=== PATIENT | male | born 1950 | race Caucasian/White ===

== ENCOUNTER 2019-04-25 16:46 | Inpatient (IN) ==
[2019-04-25] MEDS ORDERED: NS 1,000 ML IV ONE ×2 (17:35→18:48)
[2019-04-25] MEDS ORDERED: ROCEPHIN 1 GM in NS 50 ML IV ONE (17:35)
[2019-04-25 17:51] LABS: URINE SOURCE CLEAN CATCH
--- NOTE | 2019-04-25 17:55 | Diag Imaging Result Doc PS360 ---
EXAM: CHEST-1 VIEW HISTORY: ams, lymphoma TECHNIQUE: Chest single view COMPARISON: 04/29/2018 FINDINGS: Poor inspiratory effort. No change in the right jugular catheter. Heart is borderline mildly prominent. Sternal wires are present. No pulmonary edema. Increased markings in the left lung base. The right lung is clear. IMPRESSION: Possible small infiltrate in the left base. Electronically signed by Krzysztof Benson 04/25/2019 5:53 PM
[2019-04-25 18:06] LABS: BILIRUBIN URINE NEGATIVE (NEGATIVE); BLOOD URINE LARGE (NEGATIVE); COLOR YELLOW; GLUCOSE URINE NEGATIVE (NEGATIVE); KETONE URINE NEGATIVE (NEGATIVE); LEUKOCYTES URINE LARGE (NEGATIVE); NITRITE URINE NEGATIVE (NEGATIVE); PROTEIN URINE 300 mg/dL (NEGATIVE); SP GRAVITY URINE 1.016; TURBIDITY URINE TURBID (CLEAR); UROBILINOGEN URINE NORMAL (NORMAL)
[2019-04-25 18:06] LABS: INR 0.97; PROTIME 13.6 Seconds (11.0-16.0)
[2019-04-25 18:07] LABS: PTT 51.2 Seconds (22.3-41.8)
[2019-04-25 18:22] LABS: BASO% 0.4 % (0.0-0.8); EOS% 0.7 % (0.0-10.0); HEMATOCRIT 23.9 % (42.0-52.0); HEMOGLOBIN 7.3 g/dL (14.0-18.0); LYMPH% 16.5 % (20.5-51.1); MCH 32.3 PG (27-31); MCHC 30.5 g/dL (33-37); MCV 105.8 FL (81-99); MONO% 18.7 % (1.7-9.3); MPV 9.7 FL (7.4-10.4); NEUT% 62.6 % (42.2-75.2); PLT 166 X1000 (130-400); RBC 2.26 XMIL (4.7-6.1); RDW 18.3 % (11.5-14.5); WBC 2.67 X1000 (4.8-10.8)
[2019-04-25 18:23] LABS: BASO# 0.01 X1000 (0.0-0.2); EOS# 0.02 X1000 (0.0-0.7); IMM GRAN# 0.03 X1000 (0.0-0.04); IMM GRAN% 1.1 % (0.0-0.5); LYMPH# 0.44 X1000 (1.2-3.4); NEUT# 1.67 X1000 (1.4-6.5)
[2019-04-25 18:23] LABS: UR EPITHELIAL CELLS <10 /HPF (<10); URINE BACTERIA 2+ /HPF; URINE RBC <10 /HPF (<10); URINE WBC TNTC /HPF (<10)
[2019-04-25 18:24] LABS: URINE CASTS NONE SEEN; URINE CRYSTALS NONE SEEN; URINE YEAST NONE SEEN
[2019-04-25 18:25] LABS: URINE SMALL ROUND CELLS TRANS PRESENT
[2019-04-25] MEDS ORDERED: VANCOMYCIN 1 GM/NS 1 GM/250 ML IVPB IV ONE (18:35)
[2019-04-25] MEDS ORDERED: ZOSYN 4.5 GM in NS 100 ML IV ONE (18:36)
--- NOTE | 2019-04-25 18:40 | Diag Imaging Result Doc PS360 ---
EXAM: CT HEAD W/O CONTRAST HISTORY: AMS, lymphoma TECHNIQUE: CT head without contrast COMPARISON: 04/29/2018 FINDINGS: No parenchymal hemorrhage. No epidural or subdural hematoma. No subarachnoid hemorrhage. There is atrophy with chronic microvascular ischemic changes. Old cerebellar infarcts. No mass identified on this noncontrasted exam. No hydrocephalus. No sinus opacification. IMPRESSION: 1.No hemorrhage 2.Old infarcts with chronic microvascular ischemic changes This exam was performed using automated exposure control, adjustment of mA or kV according to patient size, and/or use of iterative reconstruction technique. Electronically signed by Krzysztof Benson 04/25/2019 6:38 PM
[2019-04-25] MEDS ORDERED: NS 500 ML IV ONE (18:48)
--- NOTE | 2019-04-25 18:48 | PROVIDER DOCUMENTATION ---
This chart was entered by Karyna Ramos Scribe, acting as scribe for Edis Linda MD. HPI-General Adult - General Chief Complaint: SEPSIS ALERT - D Stated Complaint: WEAKNESS Time Seen by Provider: 04/25/19 17:12 Source: patient, RN/MD (RN) Allergies/Adverse Reactions: Patient Allergies Allergy/AdvReac Type Severity Reaction Status Date / Time No Known Allergies Allergy Verified 12/27/18 06:04 Home Medications: Home Medication List Medication Instructions Recorded Confirmed Last Taken Type Atorvastatin Calcium [Lipitor] 80 mg PO QHS #90 tablet 07/14/16 03/06/19 03/26/19 21:00 Rx Aspirin 81 mg PO QAM 09/08/16 03/06/19 03/27/19 05:00 History Carvedilol 3.125 mg PO DAILY 01/18/18 03/06/19 03/27/19 05:00 History Digoxin 125 mcg PO DAILY 01/18/18 03/06/19 03/27/19 05:00 History Prochlorperazine [Compazine] 10 mg PO TID PRN PRN 04/29/18 03/06/19 03/27/19 05:00 History Cholecalciferol (Vitamin D3) 1,000 unit PO DAILY 12/24/18 03/06/19 03/27/19 05:00 History [Vitamin D3] Ciprofloxacin 0.3% Ophth Soln 1 - 2 drop Q2HR 12/24/18 03/06/19 Unknown History [Ciloxan Ophth Soln] Fluticasone Propionate [Flonase 1 spray NS DAILY 12/24/18 03/06/19 03/27/19 05:00 History Allergy Relief] Iron 65 mg PO DAILY 12/24/18 03/06/19 03/27/19 05:00 History Lenalidomide [Revlimid] 25 mg PO DIRECTED 12/24/18 03/06/19 03/27/19 05:00 History Meclizine HCl [Antivert] 25 mg PO TID 12/24/18 03/06/19 03/27/19 05:00 History Multivitamin/Iron/Folic Acid 1 each PO DAILY 12/24/18 03/06/19 03/27/19 05:00 History [Multivitamin with Iron Tablet] Nitroglycerin 0.4 mg SL PRN PRN 12/24/18 03/06/19 Unknown History Ondansetron HCl [Zofran] 0.5 - 1 tab PO PRN PRN 12/24/18 03/06/19 03/27/19 05:00 History Sacubitril/Valsartan [Entresto 24 1 each PO HS 12/24/18 03/06/19 12/26/18 08:00 History mg-26 mg Tablet] Vitamin B Complex 1 each PO DAILY 12/24/18 03/06/19 03/26/19 21:00 History Phenazopyridine HCl [Pyridium] 100 mg PO Q8H PRN PRN #12 tab 03/27/19 Unknown Rx Sulfamethoxazole/Trimethoprim 1 ea PO BID #6 tab 03/27/19 Unknown Rx [Bactrim Ds Tablet] - History of Present Illness -Gen Adult Nature of Presenting Problems: Patient is a 69 year old male who presents to the ED via EMS with weakness and dysuria. Patient is a poor historian. RN states EMS stated patient was found altered by family prior to arrival. RN states patient had radiation treatment yesterday. Patient denies nausea, vomiting, diarrhea and fever. Location of Pain/Injury: reports: none Pain Radiation: reports: no radiation Quality of Pain: reports: none Severity: reports: mild Onset/Duration: reports: unsure Timing: reports: still present Context/Activities at Onset: reports: light activity Associated Symptoms: reports: genitourinary problems (dysuria), weakness Similar Symptoms Previously?: Yes Recently seen or treated by another doctor?: No Review of Systems - Adult - REVIEW OF SYSTEMS - ADULT ROS:: limited per condition Constitutional: reports: no symptoms reported. denies: chills, fever, fatique Eyes: reports: no symptoms reported Ears, Nose, Mouth & Throat: reports: no symptoms reported Cardiovascular: reports: no symptoms reported Respiratory: reports: no symptoms reported Gastrointestinal: reports: no symptoms reported. denies: abdominal pain, diarrhea, nausea, vomiting Genitourinary: reports: see HPI, dysuria. denies: flank pain, hematuria Musculoskeletal: reports: see HPI, muscle weakness. denies: back pain, neck pain Integumentary: reports: no symptoms reported Neurological: reports: no symptoms reported Psychiatric: reports: no symptoms reported Endocrine: reports: no symptoms reported Hematologic/Lymphatic: reports: no symptoms reported Allergic/Immunologic: reports: no symptoms reported All Other Systems: Reviewed and Negative Past History - Adult - PAST MEDICAL HISTORY-ADULT Review of Records: reports: Nursing Assessment Review, Medications Reviewed, Social history reviewed & non-contributory. Major Childhood Illnesses: reports: denies history Cardiovascular: reports: HTN Respiratory: reports: denies history Gastrointestinal: reports: denies history Obstetrical/Gynecological: reports: denies history Genitourinary: reports: kidney stones Musculoskeletal: reports: denies history Neurological: reports: CVA Endocrine/Immune: reports: cancer (Lymphoma) Other Conditions: reports: denies history - PRIOR SURGERIES/PROCEDURES Surgical/Procedure History: reports: reviewed, not pertinent - IMMUNIZATION STATUS Childhood Immunizations: See Nurse Assessment Flu Vaccine: See Nurse Assessment - FAMILY HISTORY Family History: reviewed, not pertinent - SOCIAL HISTORY Smoking: denies Substance Use: denies Physical Exam-General - PHYSICAL EXAM-ADULT Initial Vital Signs Reviewed: Yes - CONSTITUTIONAL General Appearance: alert, lethargic. negative: obtunded - HEAD, EARS, NOSE, MOUTH & THROAT HENMT: other (dry mucous membranes). negative: angioedema, hearing deficit - NECK Neck: non-tender, other (2 cm by 3 cm large firm mass with fixed base to left side neck above clavicle). negative: limited range of motion - RESPIRATORY Respiratory: chest non-tender, lungs clear, normal breath sounds. negative: crackles, rhonchi, stridor - CARDIOVASCULAR Cardiovascular: normal peripheral pulses, regular rate, rhythm, systolic murmur (3/6 murmur. heard best at left sternal border.). negative: tachycardia - GASTROINTESTINAL (ABDOMEN) Abdominal Exam: normal bowel sounds, non tender, soft. negative: guarding, rigid, rebound - MUSCULOSKELETAL Extremity: non-tender, other (4 + pitting edema to bilateral lower extremities.) . negative: deformity, erythema - SKIN Integumentary: normal color, normal turgor, warm/dry. negative: diaphoresis, e cchymosis, erythema, jaundice, rash - NEUROLOGIC Neurologic: other (slurred speech). negative: motor weakness - PSYCHIATRIC Psych/Mental Status: disheveled, other (lethargic). negative: paranoid, tearful Progress - PLAN OF CARE/RESULTS Progress/Plan/Lab Results: Vital Signs - 8 hr 04/25/19 17:00 Temperature 98.2 F Pulse Rate 85 Respiratory Rate 17 Blood Pressure 109/55 O2 Sat by Pulse Oximetry 97 Laboratory Results - last 24 hr 04/25/19 17:23 POC Glucose 108 H Result Diagrams: 04/25/19 17:40 - EKG 1 Time of EKG reading by physician:: 17:13 EKG Read and Signed by:: Edis Linda EKG Interpretation (*Must complete 3 of following elements*): Abnormal (possible lateral infarct, age undetermined) Rate: 95 Rhythm: normal sinus rhythm [place]: normal QRS: other (low voltage) [place] Interval: normal Comments: possible left atrial enlargement; septal infarct, age undetermined - CONSULTS/PCP/HOSPITALIST Notification #1 *Consult/PCP/Hospitalist*: Radha Time Discussed: 18:47 Consult Disposition: Will see in ED Departure - Departure Date of Disposition Decision: 04/25/19 Time of Disposition Decision: 18:47 DIAGNOSIS: Severe sepsis, Complicated UTI (urinary tract infection) Left lower lobe pneumonia Qualifiers: Pneumonia type: due to unspecified organism Qualified Code(s): J18.1 - Lobar pneumonia, unspecified organism Lymphoma Qualifiers: Lymphoma type: unspecified type Disposition: ADMITTED INPATIENT 09 Certified Medical Emergency: Emergent Condition: Critical Referrals and Follow-Ups: Jero Bennett MD [Primary Care Provider] - - Critical Care Note This patient required my direct & personal management of CC.: Yes Total Time (mins): 40 Critical Care Statement: This patient required my direct personal management to treat or rule out processes, the absence of which, could potentiallly result in sudden, clinically significant life or limb threatening deterioration. Attestation - Physician/ TITI Attestation Patient care was provided by Advanced Practice Provider:: No The physician spent face to face time with patient:: Yes Advanced Practice Provider documentation review:: Supervising physician onsite and consulted in the evaluation and care of this patient. The physician did have a face to face encounter with the patient. This chart was documented by the indicated scribe, (Karyna Ramos Scribe) and accurately reflects the services I performed and decisions made by , Edis Linda MD, as attested by the provider's signature.
[2019-04-25 19:01] LABS: ALB/GLOB RATIO 1.1; ALBUMIN 2.8 g/dL (3.5-5.0); CREATININE 2.4 mg/dL (0.7-1.2); MAGNESIUM 1.8 mg/dL (1.5-2.7); POTASSIUM 4.2 mmol/L (3.5-5.1); TOTAL BILIRUBIN 0.58 mg/dL (0.20-1.00); TOTAL PROTEIN 5.3 g/dL (6.3-8.3)
[2019-04-25 19:03] LABS: CALCIUM 14.3 mg/dL (8.8-10.2)
[2019-04-25 19:08] LABS: LARGE PLATELETS OCCASIONAL; LYMPHS 16 % (21-51); MONO 16 % (1-9); SEGS 68 % (42-75)
[2019-04-25 19:23] LABS: CK INDEX 1.1 (0.0-2.5); CK-MB 2.6 ng/mL (0.0-5.0)
[2019-04-25] MEDS ORDERED: ZOFRAN IV PRN (19:30)
[2019-04-25] MEDS ORDERED: D5 NS 1,000 ML IV ONE (19:33)
[2019-04-25 23:51] LABS: CREATININE 2.2 mg/dL (0.7-1.2); POTASSIUM 3.8 mmol/L (3.5-5.1)
[2019-04-25 23:54] LABS: CALCIUM 12.5 mg/dL (8.8-10.2)
[2019-04-26] MEDS ORDERED: NS 1,000 ML IV SCH (00:30)
[2019-04-26] MEDS ORDERED: MORPHINE IV PRN (00:34)
[2019-04-26] MEDS: LEVAQUIN 750 MG/D5W 750 MG/150 ML IVPB IV SCH (04:33)
--- NOTE | 2019-04-26 06:34 | Diag Imaging Result Doc PS360 ---
CT NECK W/O CONTRAST - 04/26/2019 INDICATION: Hx Lymphoma, Left Neck Nodules COMPARISON: 12/18/2017 FINDINGS: There is left supraclavicular lymphadenopathy that has decreased since prior. This is incompletely imaged on this neck exam as it extends into the chest. There are two large nodes measuring 4 x 3 and 3.8 x 2.1 cm here. No other adenopathy. Stable dense vascular calcification of the carotid bulbs left greater than right. Bones are intact. The sinuses are clear. IMPRESSION: Left supraclavicular lymphadenopathy, decreased since the prior exam. This exam was performed using automated exposure control, adjustment of mA or kV according to patient size, and/or use of iterative reconstruction technique Electronically signed by Geovani Madden 04/26/2019 6:32 AM
--- NOTE | 2019-04-26 06:43 | Diag Imaging Result Doc PS360 ---
CT THORAX/ABD/PELVIS W/O CON - 04/26/2019 INDICATION: Hx Lymphoma,LLQ Abd. Pain,Poss. LLL PNA COMPARISON: None FINDINGS: CHEST: There is left supraclavicular lymphadenopathy measuring 4 x 5.1 cm in AP and lateral dimensions. There are some borderline paratracheal lymph nodes. There is mild cardiomegaly. Anemia is present. There is a right chest port in good position. There is a rather large hiatal hernia. There are trace pleural effusions. There is some hazy infiltrate throughout the left lung which may suggest pneumonia. Bony structures are intact. Abdomen pelvis: There is marked retroperitoneal lymphadenopathy. There is also mesenteric adenopathy and marked left pelvic sidewall lymphadenopathy. There are bilateral nephroureteral stents in good position. There is mild to moderate bilateral hydronephrosis. There are indeterminate hyperdense nodules in the right perinephric space superiorly. There is significant body wall edema. The gallbladder is filled with dense material probably some intravenous contrast from some other administration elsewhere, since these were all noncontrast exams. There is severe urinary bladder wall thickening which may suggest cystitis. No bowel obstruction or free air. Bones are intact. IMPRESSION: 1. Significant adenopathy compatible with lymphoma. 2. Hazy infiltrate throughout the left lung suggesting pneumonia. Trace bilateral pleural effusions. 3. Severe body wall edema. 4. Urinary bladder wall thickening suggesting cystitis. 5. Mild to moderate bilateral hydronephrosis. Nephroureteral stents in good position. 6. Small indeterminate nodules at the right kidney. This exam was performed using automated exposure control, adjustment of mA or kV according to patient size, and/or use of iterative reconstruction technique Electronically signed by Geovani Madden 04/26/2019 6:40 AM
--- NOTE | 2019-04-26 06:58 | EKG Report ---
Test Performed on : 04/25/2019 5:13:34 PM Test Reason : ED. NO EKG ORDER FOR MUSE Blood Pressure : / mmHG Vent. Rate : 095 BPM Atrial Rate : 095 BPM P-R Int : 168 ms QRS Dur : 098 ms QT Int : 314 ms P-R-T Axes : 014 057 -23 degrees QTc Int : 394 ms Normal sinus rhythm. Possible Left atrial enlargement Low voltage QRS Septal infarct (cited on or before 07-JUL-2016) Possible Lateral infarct , age undetermined Abnormal ECG When compared with ECG of 29-APR-2018 09:20, QRS axis shifted left Unconfirmed Result
--- NOTE | 2019-04-26 07:05 | Diag Imaging Result Doc PS360 ---
EXAM: KNEE 3 VIEWS RIGHT 04/25/2019 HISTORY: Fall, Right Knee Pain TECHNIQUE: Three views COMMENT: There is extensive subcutaneous edema. The tibial tuberosity is somewhat elongated. The joint spaces appear to be well maintained. There is a small separate ossicle adjacent to the head of the fibula. There is extensive arteriosclerosis. The lateral view is technically suboptimal. No definite evidence of acute fracture or dislocation is present. IMPRESSION: No evidence of acute bony disease. Electronically signed by Joe Wen 04/26/2019 7:03 AM
--- NOTE | 2019-04-26 07:29 | Diag Imaging Result Doc PS360 ---
EXAM: XRAY PELVIS W/HIP 2-3VW RT 04/25/2019 HISTORY: FAll,Right Hip and RLE Pain TECHNIQUE: AP pelvis and right hip three views COMMENT: The hip joint spaces well-maintained. There is no evidence of acute fracture or dislocation. IMPRESSION: No acute bony abnormality. Electronically signed by Joe Wen 04/26/2019 7:26 AM
[2019-04-26] MEDS ORDERED: DUONEB (A & A) INH PRN (09:39)
[2019-04-26 11:21] LABS: EOS# 0.01 X1000 (0.0-0.7); EOS% 0.5 % (0.0-10.0); HEMATOCRIT 27.1 % (42.0-52.0); HEMOGLOBIN 8.4 g/dL (14.0-18.0); IMM GRAN# 0.02 X1000 (0.0-0.04); IMM GRAN% 0.9 % (0.0-0.5); LYMPH# 0.27 X1000 (1.2-3.4); LYMPH% 12.4 % (20.5-51.1); MCH 32.1 PG (27-31); MCV 103.4 FL (81-99); MONO# 0.19 X1000 (0.11-0.59); MONO% 8.8 % (1.7-9.3); MPV 10.1 FL (7.4-10.4); NEUT# 1.68 X1000 (1.4-6.5); NEUT% 77.4 % (42.2-75.2); PLT 154 X1000 (130-400); RBC 2.62 XMIL (4.7-6.1); RDW 18.7 % (11.5-14.5); WBC 2.17 X1000 (4.8-10.8)
[2019-04-26 11:35] LABS: IRON SATURATION 28 %; TIBC 285 ug/dL; TOTAL IRON 80 ug/dL (53-167); UNBOUND IRON 205 ug/dL (112-346)
[2019-04-26 11:41] LABS: ALBUMIN 2.6 g/dL (3.5-5.0); CALCIUM 12.1 mg/dL (8.8-10.2); CREATININE 2.2 mg/dL (0.7-1.2); MAGNESIUM 1.6 mg/dL (1.5-2.7); POTASSIUM 3.9 mmol/L (3.5-5.1); TOTAL BILIRUBIN 0.55 mg/dL (0.20-1.00); TOTAL PROTEIN 5.1 g/dL (6.3-8.3)
[2019-04-26] MEDS ORDERED: ZOMETA 4 MG in NS 100 ML IV ONE (12:24)
[2019-04-26 13:11] LABS: FERRITIN 102 ng/mL (30-400)
[2019-04-26] MEDS ORDERED: LASIX IV ONE (14:15)
--- NOTE | 2019-04-26 14:40 | HISTORY AND PHYSICAL ---
PRIMARY CARE PROVIDER: JOHN Pedro PATIENT'S ONCOLOGIST: Dr. Borges. CHIEF COMPLAINT: Weakness. HISTORY OF PRESENT ILLNESS: Mr. Ibrahim is a 69-year-old male with a past medical history of large B-cell lymphoma currently followed by Dr. Borges. He reports he is receiving daily oral chemotherapy. He did recently undergo a urological surgery with Dr. Brush on 03/27/2019 for which he had a cystoscopy with bilateral ureteral stent exchange with bilateral retrograde pyelograms. The patient is alert and oriented to person, place, time and situation though he does have some difficulty with speech secondary to a previous stroke so his sister did provide most of his history of present illness and past medical history. She states that for the past month now pretty much since the surgery on 03/27 that he has had progressively worsening weakness. She also reports that he has had a total of 4 falls since then. Initially, at the time of his initial fall which would been around 04/09 or 04/10, he did get evaluated by Dr. Borges. She did do x-rays of his knee and was found not to have any acute injuries though she states yesterday that the patient did fall from a sitting position onto the floor. This as well as his worsening weakness is what brought him to have him evaluated in the ER. The patient's sister denies him having any known changes to any of his medicines or any new medicines written. The patient denies any dizziness, chest pain, or shortness of breath though he does report that he has had a nonproductive cough that is of new onset. He is reporting some left lower quadrant pain and dysuria. He denies any nausea, vomiting or diarrhea. He denies any constipation, and states his last bowel movement was within the last day or so. The patient is reporting some right lower extremity pain in his hip and knee area. He does have some decreased mobility and range of motion, and decreased range of motion in this extremity as well. His sister states that since his most recent fall he has been unable to bear weight on his right lower extremity. He has not had any known fever, body aches, or chills either. Upon evaluation in the ER, patient was found to be anemic with a hemoglobin of 7.3 and hematocrit of 23.9. Also, he did have acute kidney injury with a creatinine of 2.4 and GFR of 27 as well as hypercalcemia with a calcium level of 14.3. Urinalysis did show large leukocytes, too numerous to count white blood cells, and 2+ bacteria. There was a possible pneumonia in the left lung base. Given these findings, the patient will be admitted in a patient for admission for further treatment and evaluation. PAST MEDICAL HISTORY: 1. Lymphoma followed by Dr. Borges. 2. Systolic heart failure. 3. Hyperlipidemia. 4. Coronary artery disease. 5. 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 PAST SURGICAL HISTORY: 1. Multiple biopsies related to his lymphoma. 2. Coronary artery bypass graft. 3. Cardiac surgery as a child to repair an unknown heart defect. 4. Right inguinal hernia repair. 5. A recent cystoscopy with bilateral ureteral stent exchange with bilateral retrograde pyelograms by Dr. Brush on 03/27/2019. SOCIAL HISTORY: There is no known alcohol or illicit drug use. The patient does live at home with his sister. FAMILY HISTORY: Positive for his mother having a history of unknown metastatic cancer. His father at a young age secondary to a gunshot wound. ALLERGIES: Patient has no known allergies. HOME MEDICATIONS: We are waiting for the patient's home medication list to be updated and verified. Once done so, we will address his home medications and continue appropriate medications. DIAGNOSTIC DATA/LABORATORY RESULTS: White blood cell count 2670. Hemoglobin 7.3, hematocrit 23.9, and the platelet count is 166,000. PT 13.6. INR 0.97. PTT is 51.2. Sodium 138, potassium 4.2, chloride 100, serum bicarb is 26, BUN 46, creatinine 2.4 with a GFR of 27. Glucose is 101. Calcium 14.3. Liver function tests are within normal limits except for AST was slightly elevated at 63. CK 234, CK index 1.1, CK-MB is 2.6 troponin is 0.036. Urinalysis obtained via clean catch, was positive for blood, large leukocytes, too numerous to count white blood cells, and 2+ bacteria. 1. CT of the head showed no acute hemorrhage. There were some old infarcts with chronic microvascular ischemic changes. 2. Chest showed a possible small infiltrate in the left lung base. 3. Pelvis with right hip views showed no acute bony abnormality. 4. Her right knee x-ray showed no evidence of bony disease. 5. CT thorax of abdomen and pelvis without contrast showed significant adenopathy compatible with lymphoma. There was a hazy infiltrate throughout the left lung suggesting pneumonia. There were also trace bilateral effusions. There was severe body wall edema. There was urinary bladder wall thickening suggesting cystitis. There is a mild to moderate bilateral hydronephrosis and nephro ureteral stents in good position. There were small intermittent nodules at the right kidney. 6. Neck CT without contrast showed a left supraclavicular lymphadenopathy decreased in size since prior exam. 7. EKG showed sinus rhythm and possible left atrial enlargement at a rate of 95 with a QTc of 394. PHYSICAL EXAMINATION: VITAL SIGNS: Temperature 98.4, heart rate 83, respirations 16, and blood pressure 123/53. Oxygen Saturation is 100% on room air. GENERAL: Mr. Ibrahim is an ill appearing 69-year-old male. He was resting on the ER stretcher. He is in no acute distress. He was awake and alert, unable to answer questions appropriately. HEENT: Head is atraumatic, normocephalic. Pupils are equal, round, reactive to light, and were 3 mm bilaterally and brisk. Oral mucosa is moist. Oropharynx is clear. NECK: Supple. Trachea midline. CARDIOVASCULAR: Patient has S1-S2 present. He also does have a murmur noted as well. He does have a regular rate and rhythm. PULMONARY: Patient has symmetrical chest expansion bilaterally. Lung sounds are clear to auscultation in all solis except for he does have some crackles in the left lung base noted. ABDOMEN: Soft. Nondistended though he did report some tenderness upon palpation in the left lower quadrant. There was no rebound tenderness noted. Bowel sounds are present in all 4 quadrants and were normoactive. EXTREMITIES: No cyanosis noted, though the patient does have. Edema noted in bilateral lower extremities. This is 1 to 2+ pitting edema noted approximately in the mid calf down bilaterally. Pulse, motor and sensory is intact in all extremities. Radial pulses and pedal pulses were 2+ bilaterally. INTEGUMENTARY: The patient's skin is slightly pale though is warm and dry. NEUROLOGICAL: Patient is alert and oriented to person, place, time, and situation. He is able to move all extremities. He does have a slight speech disturbance. This is not of new onset. He has had a previous stroke, though he is able to move all extremities. There does not appear to be any focal neurological deficits noted. MUSCULOSKELETAL: The patient did have some reported right hip and right knee pain. He did have some pain with manipulation as well as decreased range of motion in his right hip and knee upon examination. LYMPHATICS: The patient did have two nodules noted upon palpation of the left supraclavicular area, one was approximately a large marble size and the other one was approximately the size of a small marble. Patient did not report tenderness upon palpation. There was no warmth or erythema noted. ASSESSMENT AND PLAN: 1. Urinary tract infection. For this, we have obtained a urine culture. We have placed the patient on antibiotic coverage [*]dosed. We will continue to follow. Await urine culture results. 2. Possible left lower lobe pneumonia. This was initially noted on chest x-ray that was confirmed with CT. We will continue with the same antibiotic as mentioned above of Levaquin. This has been renally dosed. Blood cultures have been obtained as well as a sputum culture. We will continue with aggressive pulmonary toilet and incentive spirometry. Frequent turn, cough and deep breathing, and p.r.n. DuoNeb treatments. 3. Hypercalcemia. For treatment of this, we will provide the patient with fluid hydration. He did receive a total of 2500 mL normal saline bolus in the ER. Since that time upon recheck, his calcium has improved from 14.3 to 12.5. We will continue with some gentle fluid hydration though we will monitor his fluid volume status closely. He does have a history of congestive heart failure. We will also order some further studies for further evaluation of his hypercalcemia. 4. Weakness. This could be multifactorial. I do feel that this could be overall physical deconditioning secondary to the patient's multiple medical problems including his lymphoma though hypercalcemia could be the cause of his recent worsening weakness symptoms. We will continue to monitor this. We will see if this improves the patient's improvement of his calcium level. We will continue to follow. The patient did not appear to have any focal neurological deficits noted. He did have generalized weakness though did not having unilateral weakness. He had equal hand grasps and muscle strength bilaterally. The patient does have a slight speech disturbance though this is not of new onset, and has been present since the present stroke. 5. Lymphoma. For this, we have placed a consult with Dr. Borges. Patient does have some adenopathy noted on his CT of the thorax, abdomen, and pelvis as well as there were some indeterminate nodules noted at the right kidney. We will await on Dr. Borges's evaluation and further recommendations for management. 6. History of coronary artery disease, and congestive heart failure. We will continue his regularly prescribed medicines for this once the patient's home medications have been reconciled. As previously, we are closely monitoring his fluid volume status since he is being given fluids to help with his hypercalcemia. We will continue to follow. 7. Acute kidney injury. The patient's previous creatinine was 1.6 and is now 2.4. We will continue with gentle fluid infusion. We will avoid nephrotoxic medications and renally dose medications if necessary, and continue to follow. 8. DVT prophylaxis. He has been provided with sequential compression devices. 9. The patient has been placed on the medical floor with telemetry. He will have vital signs q.4 hours. We will do strict input and output, incentive spirometry and daily weights. We will repeat a CBC and CMP in the morning. We will also place orders for anemia profile. The patient was anemic with a hemoglobin of 7.3 and hematocrit 23.9. We will give him 1 unit of blood. We will re-evaluate this after his transfusion. Also, his troponin was slightly elevated though he does have an acute kidney injury and the patient is denying any chest pain. He does not have any acute EKG changes. This is likely secondary to his renal function though we will continue to do a series of troponin's. 10. Continue to follow. Further orders and recommendations pending hospital course, diagnostic studies, and physician evaluation. Dictated by JOHN Rand for Delroy Ramirez MD cc: Delroy Ramirez MD
[2019-04-26] MEDS: ALBUMIN 25% IV SCH (16:38)
--- NOTE | 2019-04-26 16:44 | PROGRESS NOTE ---
DATE: 04/26/2019 Today Mr. Ibrahim seems to be feeling the same. He feels weak and extremely tired and seems to be also confused. The sister who is his caregiver was at the bedside at the time of the encounter. OBJECTIVE: Vitals: Blood pressure is 123/50, pulse of 89, respiration is 20, temperature 98.2 degrees. General: Mr. Ibrahim is a 69-year-old gentleman he is in bed. He looks extremely weak and wasted. HEENT: Mucosa is pink and moist. Anicteric. Acyanotic. Neck: Supple. Chest: Air entry is bilaterally reduced. A few crackles in the posterior lung solis. Cardiovascular: Regular rate and rhythm. There is an old sternotomy scar on the anterior chest wall. Abdomen: Soft, distended. There is a lot of edema on the lateral abdominal wall. Extremities: About 3 to 4+ pedal edema. 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 Follows some basic commands but he looks confused. IMAGING STUDIES: A CT scan of the chest, abdomen and pelvis has been reviewed. LABORATORY DATA: WBC is 2.19, hemoglobin is 8.4, platelet count of 154,000. Chemistry is also reviewed. BUN is 42, creatinine is 2.2. ASSESSMENT: 1. Altered mental status presumably a combination of hypercalcemia and narcotic chronic use. Patient's mentation seems to be progressively getting better. 2. Severe hypercalcemia with low PTH which is consistent of nondependent PTH hypercalcemia. I think this is related to the lymphoma. He has been given 1 dose of zoledronic acid and he is also getting IV fluids. 3. Anasarca. Patient is remarkably volume overloaded. We are going to put in a Baldwin catheter to monitor I's and O's, will also get him Lasix to help with both the calcium and the fluid management. 4. Acute renal failure. 5. Moderate bilateral hydronephrosis with ureteral stent in good position. We are going to put in a Baldwin catheter. It looks like patient has cystitis with thickening of the bladder wall so will put in a catheter to see if some of the hydronephrosis can be decompressed. 6. Left lower lung pneumonia. Patient is on antibiotics. 7. History of diffuse B-cell lymphoma. Patient is on R-CHOP, medications have been withheld. A CT scan of the abdomen seems to suggest worsening of the lymphadenopathy. 8. Poor performance status. cc: Jose Jenkins MD MTDD
--- NOTE | 2019-04-26 20:42 | HEMO/ONC CONSULTATION ---
DATE: 04/26/2019 REASON FOR CONSULTATION: Lymphoma, patient known. HISTORY OF PRESENT ILLNESS: Mr. Uri Ibrahim is a unfortunate 69-year-old male who is known to us as we are currently treating him for relapsed refractory diffuse large B-cell lymphoma. He is currently receiving Imbruvica which he seems to be responding to. Looks like he presented to the emergency department with altered mental status as well as weakness and dysuria. He has been admitted now with sepsis and a urinary tract infection. Upon presentation he was found to have hypercalcemia. We have been consulted to help work up the patient. PAST MEDICAL HISTORY: 1. Congenital heart disease. 2. Coronary artery disease. 3. Hypertension. 4. Hyperlipidemia. 5. Kidney stones. 6. Relapsed refractory diffuse large B-cell lymphoma currently on Imbruvica. SURGICAL HISTORY: 1. He is status post CABG x3 back in 2011. 2. Hernia repair. 3. Median sternotomy for congenital heart disease. 4. Patient has also had ureteral stents placed due to bilateral hydronephrosis related to his disease. He follows with Dr. Brush. SOCIAL HISTORY: The patient has no children he currently lives with his sister. He has never smoked before and denies any illicit drug use. FAMILY HISTORY: Positive for liver cancer in his mother. No other significant history noted. REVIEW OF SYSTEMS: Twelve point review of systems is complete except for was expressed in the HPI. PHYSICAL EXAMINATION: Vital Signs: Temperature 98.2 degrees, heart rate 89, respirations 20, blood pressure 125/50, O2 saturation 98% on 2 L nasal cannula. General: This is a thin chronically ill-appearing male lying in hospital bed with his sister at bedside. HEENT: Head normocephalic, atraumatic. Pupils equal, round, reactive. Oral mucosa is normal. Cardiovascular: S1, S2 heard. Gastrointestinal: Abdomen is nondistended. Musculoskeletal: Arthritic changes noted. Neurologic: Patient is alert. LABS AND STUDIES: White blood cells 2.17, hemoglobin 8.4, hematocrit 27.1, platelet count 154,000, absolute neutrophil count 1.68, sodium 140, potassium 3.9 chloride 103, CO2 of 26, BUN 42, creatinine 2.2, glucose 107, calcium is 12.1 and corrected is about 14.2. UA consistent with urinary tract infection. CT of chest, abdomen and pelvis without contrast shows significant adenopathy which is compatible with his lymphoma, possibly some pneumonia in the left lung, severe body wall edema, mild to moderate bilateral hydronephrosis with nephroureteral stents in good position. Small indeterminate nodules at the right kidney. ASSESSMENT AND PLAN: 1. Relapsed refractory diffuse large B-cell lymphoma. Patient has been showing response to Imbruvica. He has been heavily pretreated previously. He has had issues with cytopenias too in the past which have limited our treatment options. Patient will continue the hospital now. Will follow along. Will see how hospital course goes but we have previously discussed hospice as an option for the patient if he can no longer receive treatment. 2. Sepsis. Management per the primary team. 3. Urinary tract infection. Patient is currently on intravenous antibiotics. 4. Bilateral hydronephrosis with ureteral stent placement. Managed previously by urology and would defer back to them. 5. Anemia, ongoing issue related to his underlying disease. Hemoglobin is good and stable at this point. 6. Hypercalcemia of malignancy. We did go ahead and give the patient a dose of zoledronic acid. Follow up on calcium levels. Can repeat if needed. 7. Edema. Management per the primary team. Looks like he is on Lasix. We want to thank you for consulting us on Mr. Ibrahim. Will continue to follow along adjust our treatment plan per his hospital course. Dictated by JIM Ambriz for Clare Borges MD cc: Clare Borges MD
[2019-04-27] MEDS: TYLENOL PO PRN (00:27)
[2019-04-27 07:16] LABS: EOS# 0.02 X1000 (0.0-0.7); HEMATOCRIT 26.6 % (42.0-52.0); HEMOGLOBIN 8.1 g/dL (14.0-18.0); LYMPH% 9.9 % (20.5-51.1); MCH 31.8 PG (27-31); MCHC 30.5 g/dL (33-37); MCV 104.3 FL (81-99); MONO# 0.26 X1000 (0.11-0.59); MONO% 12.8 % (1.7-9.3); MPV 10.1 FL (7.4-10.4); NEUT# 1.55 X1000 (1.4-6.5); NEUT% 76.3 % (42.2-75.2); PLT 135 X1000 (130-400); RBC 2.55 XMIL (4.7-6.1); RDW 18.7 % (11.5-14.5); WBC 2.03 X1000 (4.8-10.8)
[2019-04-27 07:46] LABS: ALB/GLOB RATIO 1.3; ALBUMIN 2.9 g/dL (3.5-5.0); CALCIUM 11.8 mg/dL (8.8-10.2); CREATININE 2.3 mg/dL (0.7-1.2); POTASSIUM 3.8 mmol/L (3.5-5.1); TOTAL BILIRUBIN 0.67 mg/dL (0.20-1.00); TOTAL PROTEIN 5.2 g/dL (6.3-8.3)
[2019-04-27] MEDS: ALBUMIN 25% IV SCH (09:00)
[2019-04-27] MEDS: LASIX IV SCH (16:04)
--- NOTE | 2019-04-27 17:05 | PROGRESS NOTE ---
DATE: 04/27/2019 SUBJECTIVE: Today, Mr. Ibrahim looks more awake and more interacting than yesterday. OBJECTIVE: Vitals: Blood pressure is 92/38, pulse of 88, respirations 12 and temperature 97.5 degrees. Patient was saturating 100% on 2 L. General: Mr. Ibrahim is a 69-year-old gentleman. He is in bed. He looks remarkably emaciated and wasted. HEENT: Mucosa is pink and moist. Anicteric. Acyanotic. Neck: Supple. Chest: Air entry is bilaterally reduced. There are some crackles posteriorly. Cardiovascular: Regular rate and rhythm. There is old sternotomy scar on the anterior chest wall. Abdomen: Soft and is distended. There is some edema in the lateral aspect of the abdominal wall. Extremities: About 4+ pedal edema. 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 He follows some basic commands. LABORATORY DATA: Has been reviewed remarkably. He is pancytopenic with macrocytosis. His creatinine is 2.3. BUN is down to 38. Calcium is also down to 11.8. ASSESSMENT: 1. Altered mental status on presentation secondary to drug induced and metabolic encephalopathy improved. 2. Severe malignant hypercalcemia. Patient was given zoledronic acid yesterday. Calcium is on downward trend. 3. Anasarca. We will continue using a combination of albumin with Lasix. 4. Acute kidney injury likely secondary to the hypercalcemia. We will continue to avoid any nephrotoxic drugs, and follow up with renal function test. It is also very possible that it could be possibly obstructive uropathy. 5. Moderate bilateral hydronephrosis with ureteral stent in good position. The patient currently has a Baldwin catheter in place, and seems to be draining well. 6. Left lower lung pneumonia. Patient is on IV antibiotics. 7. History of diffuse B-cell lymphoma. The patient was on R-CHOP. Dr. Salinas is on board. The current CT scan seems to suggest worsening of the lymphadenopathy. 8. Extreme worsening lower extremity swelling. We think this is secondary to an obstruction of the venous drainage as a result of the lymphadenopathy in the pelvic and lower abdominal region. 9. Poor performance status. At this point, Mr. Ibrahim has pancytopenia, has metabolic complications, and has anasarca and severe lower extremity abnormalities all secondary to the lymphadenopathies in the abdominal cavity, which seems to be getting worse, and this is because of recurrent diffuse B-cell lymphoma. I think his prognosis is poor. His performance status is also remarkably poor, and I think he would definitely benefit from hospice care. However, the sister who is at the bedside at the time of the encounter would rather discuss these end of life issues with the oncologist. cc: Jose Jenkins MD
[2019-04-27] MEDS: NORCO-5 PO PRN (22:01)
[2019-04-28] MEDS: LEVAQUIN 750 MG/D5W 750 MG/150 ML IVPB IV SCH (04:45)
[2019-04-28 09:23] LABS: HEMATOCRIT 26.9 % (42.0-52.0); HEMOGLOBIN 8.3 g/dL (14.0-18.0); WBC 3.22 X1000 (4.8-10.8)
[2019-04-28 09:24] LABS: BASO# 0.01 X1000 (0.0-0.2); BASO% 0.3 % (0.0-0.8); EOS# 0.02 X1000 (0.0-0.7); EOS% 0.6 % (0.0-10.0); LYMPH# 0.38 X1000 (1.2-3.4); LYMPH% 11.8 % (20.5-51.1); MCH 31.9 PG (27-31); MCHC 30.9 g/dL (33-37); MCV 103.5 FL (81-99); MONO# 0.41 X1000 (0.11-0.59); MONO% 12.7 % (1.7-9.3); MPV 10.1 FL (7.4-10.4); NEUT% 74.6 % (42.2-75.2); PLT 150 X1000 (130-400); RDW 18.5 % (11.5-14.5)
[2019-04-28 09:41] LABS: ALB/GLOB RATIO 1.3; ALBUMIN 3.1 g/dL (3.5-5.0); CALCIUM 11.2 mg/dL (8.8-10.2); CREATININE 3.4 mg/dL (0.7-1.2); TOTAL BILIRUBIN 0.74 mg/dL (0.20-1.00); TOTAL PROTEIN 5.4 g/dL (6.3-8.3)
[2019-04-28] MEDS: LASIX IV SCH (09:44)
[2019-04-28] MEDS: ALBUMIN 25% IV SCH (09:45)
--- NOTE | 2019-04-28 11:13 | PROGRESS NOTE ---
DATE: 04/28/2019 SUBJECTIVE: This morning, Mr. Ibrahim seems to be doing a little better. No new complaints. The sister was at the bedside at the time of the encounter. OBJECTIVE: Vital Signs: Blood pressure is 138/68, pulse of 115, respirations 20, temperature is 98.3 degrees. General: Mr. Ibrahim is a 69-year-old male. He is in bed. He looks remarkably wasted and chronically ill. HEENT: Mucosa is pink but dry. Anicteric. Acyanotic. Neck: Supple. Chest: Good air entry bilaterally. Few crackles posteriorly. Cardiovascular: Regular rate and rhythm. There is an old sternotomy scar on the anterior chest wall. Abdomen: Soft, distended. Bowel sounds were present but hypoactive. Extremities: About 3+ to 4 pedal edema, more so on the left. 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 LABORATORY DATA: WBC is 3.33, hemoglobin is 8.3, platelet count of 158,000. Chemistry is also reviewed, BUN 42, creatinine is 3.2. So far urine culture and blood cultures have been negative. ASSESSMENT: 1. Altered mental status on presentation presumably due to metabolic encephalopathy (severe hypercalcemia). This is improve. 2. Malignant hypercalcemia. The patient was given a dose of Zoledronic acid. Calcium is trending down. 3. Anasarca, more predominantly in the lower extremities noted. 4. Moderate bilateral hydronephrosis with ureteral stent in good position on the scan. There is also concern of bladder wall thickening. Question of cystitis. The patient has a Baldwin catheter in place. Urine culture so far is negative. 5. Left lower lobe pneumonia. We will continue with the current antibiotics. 6. History of diffuse B-cell lymphoma. CT scan suggests that the lymphadenopathy seems to be getting worse. 7. Worsening lower extremity swelling. Doppler ultrasound was negative for deep venous thrombosis. We think this is a mechanical obstruction of venous drainage through the IVC due to the worsening retroperitoneal and intra-abdominal lymphadenopathy. 8. Poor performance status with poor prognosis. We have also discussed again today the need of palliative and hospice consultation. The patient said the sister at this point is willing to have a discussion with palliative medicine, so we will consult them tomorrow. The sister is also waiting to hear what is the final recommendation from Hematology/Oncology before she takes any further decisions. 9. Acute kidney injury. Creatinine got slightly worse with Lasix so I have discontinued that. We will start the patient on some gentle hydration. We will also do some urine studies and renal ultrasound and get Nephrology to see the patient. We will also get Dr. Brush who put a stent in to evaluate Mr. Ibrahim. Disposition. We plan that Mr. Ibrahim can be discharged tomorrow home with hospice if Hematology/Oncology is in agreement with that. cc: Jose Jenkins MD MTDD
[2019-04-28] MEDS: NS 1,000 ML IV SCH (11:28)
--- NOTE | 2019-04-28 12:56 | Diag Imaging Result Doc PS360 ---
US RENAL 2 (RETROPER) COMPLETE - 04/28/2019 INDICATION: [id number] TECHNIQUE: COMPARISON: Full body CT 04/26/2019 FINDINGS: There is moderate bilateral hydronephrosis. Renal sizes are normal. The right kidney measures 10.5 x 5.1 x 5.8 cm. The left kidney measures 14.9 x 6 x 7.5 cm. There are numerous right-sided exophytic renal cysts. On the right, a few of these at the upper pole are slightly echogenic suggesting complicated cysts. These measure up to 2.5 cm. The urinary bladder is largely collapsed. IMPRESSION: 1. Moderate bilateral hydronephrosis similar to prior. 2. Several right-sided renal cysts. Some of these are slightly echogenic and probably complicated. 3. Urinary bladder is mostly collapsed. Electronically signed by Geovani Madden 04/28/2019 12:53 PM
[2019-04-28] MEDS: NORCO-5 PO PRN ×2 (15:30→21:18)
--- NOTE | 2019-04-28 16:41 | CONSULTATION ---
DATE OF CONSULTATION: 04/28/2019 REQUESTING PHYSICIAN: Jose Jenkins MD REASON FOR CONSULTATION: Obstructive uropathy. HISTORY OF PRESENT ILLNESS: This is a 69-year-old, pleasant male with a diagnosis of diffuse large B-cell lymphoma. He is known to urologic service secondary to bilateral hydronephrosis and having Dr. John Brush place bilateral ureteral stents on 12/27/2018. The patient underwent cystoscopy with ureteral stent exchange on 03/27/2019 as well as bilateral retrograde pyelograms. Per record review, the procedure was fairly uncomplicated. Mr. Ibrahim presented on 04/25/2019 with weakness and was noted to have urinalysis concerning for urinary tract infection as well as acute kidney injury. The patient did have imaging done with CT chest, abdomen and pelvis on 04/26/2019, which revealed persistent lymphadenopathy throughout his retroperitoneum and pelvic sidewall as well as bilateral nephroureteral stents in good position. Mr. Ibrahim reports that he has had intermittent gross hematuria for the last 3 weeks. He also reports increased frequency and urgency and has been voiding in small amounts. He currently has Baldwin catheter in place, and despite that has creatinine rising to 3.4 on 04/28/2019 up from 2.3 on 04/27/2019 and 2.2 on 04/26/2019. He currently reports mild discomfort from the Baldwin catheter as well as right lower extremity pain but otherwise denies symptoms. PAST MEDICAL HISTORY: Diffuse B-cell lymphoma, congestive heart failure, coronary artery disease, CVA, hyperlipidemia. PAST SURGICAL HISTORY: Coronary artery bypass graft, right inguinal hernia repair, cystoscopy with ureteral stent placement as well as exchanges. ALLERGIES: Morphine. HOME MEDICATIONS: Aspirin, atorvastatin, carvedilol, digoxin, Entresto, iron, meclizine, nitroglycerin, Revlimid and Zofran. SOCIAL HISTORY: Denies tobacco, alcohol or illicit drug use. He has his sister as a cell phone repair technician. FAMILY HISTORY: Negative for malignancies. REVIEW OF SYSTEMS: Reviewed and 12 systems are negative except as per HPI. PHYSICAL EXAMINATION: Vital signs: T 98.4 degrees, P 110, BP 100/48. General: Cachectic- appearing male in no acute distress. HEENT: Normocephalic, atraumatic. Cardiovascular: Tachycardic. Regular rhythm. Pulmonary: Bilateral breath sounds. Abdomen: Scaphoid. Nontender to palpation. No distention. Back: No CVA tenderness. Genitourinary: Edematous scrotum, redundant foreskin, meatus within normal limits. Baldwin catheter in place draining straw- colored urine. No testicular masses palpable. Perineal integrity is intact. Lymphatic: No groin lymphadenopathy palpable. Neurologic: Alert and oriented x3. Dermatologic: No obvious skin rashes. Neuropsychiatric: Appropriate mood and affect. PERTINENT LABS: Creatinine is 3.4, potassium is 4, white cell count 3000, hematocrit is 27. PERTINENT IMAGES: Renal ultrasound on 04/28/[address] chest abdomen and pelvis on 04/26/2018 as per HPI. ASSESSMENT AND PLAN: A 69-year-old male with diffuse B-cell lymphoma and retroperitoneal lymphadenopathy, which likely has caused bilateral ureteral obstruction. He has ureteral stents, which were changed 4 weeks ago. They appeared to be in excellent position. His urinalysis was reviewed by me and certainly appears that he may have had a urinary tract infection given the presence of bacteria. His urine culture is negative. I have discussed with the patient and sister that I would recommend empiric treatment for urinary tract infection with antibiotics given his urinalysis and his immunocompromised state. I have also discussed with the patient and his sister that in light of the stents being changed 4 weeks ago I am not so sure it would be beneficial to change them again this soon, but certainly if Dr. Brush decides so it would be reasonable. The patient may end up considering having nephrostomy tube placed to decompress his kidneys, but I will leave that ultimate decision up to Dr. Brush and the patient. They voiced understanding and are in agreement. PLAN: 1. Agree with Levaquin for now. I recommend empiric 7 to 10 day treatment with antibiotic. 2. No reason for emergent intervention today to exchange the patient's ureteral stents. 3. We will defer to Dr. Brush whether the patient would benefit from bilateral nephrostomy tube placement in addition to the stents versus having stent exchanged. Thank you for the consultation. cc: Arnol Rojo MD
[2019-04-28] MEDS: TYLENOL PO PRN (19:53)
[2019-04-28 22:46] LABS: UR CREAT RANDOM 84.7 mg/dL (14-26)
[2019-04-29] MEDS: NS 1,000 ML IV SCH (03:25)
[2019-04-29] MEDS: NORCO-7.5 PO PRN ×4 (04:48→23:32)
[2019-04-29 06:44] LABS: EOS# 0.03 X1000 (0.0-0.7); EOS% 1.2 % (0.0-10.0); HEMATOCRIT 24.2 % (42.0-52.0); HEMOGLOBIN 7.5 g/dL (14.0-18.0); IMM GRAN# 0.04 X1000 (0.0-0.04); IMM GRAN% 1.6 % (0.0-0.5); LYMPH# 0.28 X1000 (1.2-3.4); LYMPH% 10.9 % (20.5-51.1); MCH 32.1 PG (27-31); MCV 103.4 FL (81-99); MONO% 11.7 % (1.7-9.3); MPV 9.9 FL (7.4-10.4); NEUT# 1.91 X1000 (1.4-6.5); NEUT% 74.6 % (42.2-75.2); PLT 147 X1000 (130-400); RBC 2.34 XMIL (4.7-6.1); RDW 18.3 % (11.5-14.5); WBC 2.56 X1000 (4.8-10.8)
[2019-04-29 07:07] LABS: ALBUMIN 3.3 g/dL (3.5-5.0); CALCIUM 10.8 mg/dL (8.8-10.2); CREATININE 4.5 mg/dL (0.7-1.2); PHOSPHORUS 2.8 mg/dL (2.7-4.5)
[2019-04-29] MEDS: ALBUMIN 25% IV SCH (10:05)
[2019-04-29] MEDS: LEVAQUIN 250 MG/D5W 250 MG/50 ML IVPB IV SCH (11:16)
[2019-04-29] MEDS ORDERED: LIPOSYN 20% 250 ML IV SCH (14:45)
[2019-04-29] MEDS: CLINIMIX E 4.25%-5% SOLUTION 1,000 ML IV SCH (16:04)
--- NOTE | 2019-04-29 16:10 | PROGRESS NOTE ---
DATE: 04/29/2019 SUBJECTIVE: This morning Mr. Ibrahim refers to be feeling a little better. The sister was at the bedside at the time of the encounter. He denies any new complaints. OBJECTIVE: Vital signs: Blood pressure 98/44, pulse of 102, respirations 24, temperature 97.9 degrees. General: Mr. Ibrahim is a 69-year-old male. He was in bed, did not seem to be in any cardiopulmonary distress. HEENT: Mucosa is pink and moist. Anicteric. Acyanotic. Neck: Supple. Chest: Air entry was bilaterally reduced. A few crackles posteriorly. Cardiovascular: Regular rate and rhythm. There is an old sternotomy scar on the anterior chest wall. Abdomen: Soft, minimally distended. Bowel sounds present, but hypoactive. Extremities: About 3+ pedal edema, left more than the right. SPECIAL SHOPPER: Mr. Ibrahim is awake and alert, follows some basic commands, but he is remarkably weak and feeble. LABORATORY DATA: WBC is 3 and 2.56, hemoglobin is 7.5, platelet count of 147,000. Chemistry is also reviewed. Creatinine is up to 4.5. I's and O's: Urine output was 725. Patient is currently positive balance of 1707. Urine sodium was 69. Ultrasound of the kidneys shows bilateral hydronephrosis. There is also several renal cysts. Urinary bladder is mostly collapsed. So far, blood culture and urine cultures have been negative. ASSESSMENT: 1. Altered mental status on presentation secondary to metabolic encephalopathy (due to severe hypercalcemia. Mentation has improved. 2. Malignant hypercalcemia. Patient has been given a dose of zoledronic acid. Calcium has normalized. 3. Moderate bilateral hydronephrosis with ureteral stent in good position on the scan. The patient has been evaluated by Urology. We will follow further recommendations from them. 4. Left lower lobe pneumonia. Patient is on Levaquin. 5. History of diffuse B-cell lymphoma. A CT scan suggests lymphadenopathy is getting worse. Heme-Onc is on board. 6. Worsening lower extremity swelling with scrotal swelling. Doppler ultrasound was negative for deep venous thrombosis. We think this is a mechanical obstruction of the venous drainage through the IVC due to the worsening retroperitoneal and intraabdominal lymphadenopathy. 7. Acute kidney injury. Creatinine continues to be worsened. The ultrasound seems to suggest bilateral hydronephrosis. I think there is a mechanical obstruction somewhere that is contributing to the renal failure. Nephrology has also been consulted and will be pending further recommendations from them. 8. Poor performance status with poor prognosis. The sister of Mr. Ibrahim is open to discussion of hospice as long Heme-Onc is the one that is going to discuss this with them. I will be waiting on Oncology to discuss end of life issues with the family since they seems to only trust such discussion from the oncologist. 9. Hypoglycemia secondary to poor oral intake. I will start the patient on Clinimix with lipid infusion while we are awaiting final recommendations as to the patient's care going forward. I think Ms Mr. Ibrahim qualifies to be on hospice. I think he is hospice appropriate. We will await heme-onc cc: Jose Jenkins MD Addendum: Per palliative nurse, family ( patient's sister) is ok with Mr Ibrahim going home tomorrow on hospice MTDD
--- NOTE | 2019-04-29 17:04 | PROGRESS NOTE ---
DATE: 04/29/2019 SUBJECTIVE: The patient remains clinical unchanged. The patient's renal function has worsened today to creatinine of 4.5 from 3.4 yesterday. The patient continues to make good amount urinary output without any clots. Denies any flank pain, nausea, or vomiting. The patient is slightly more lethargic today than yesterday. Had discussion today with Hematology/Oncology regarding hospice for the patient. The patient and his sister have elected to proceed after thorough discussion. OBJECTIVE: Vital signs: Temperature 98 degrees, Heart rate 101, blood pressure 89/42, oxygen saturation 98% on nasal cannula. General: No acute distress. Resting comfortably in bed. Alert and oriented x3. Abdomen: Soft, nontender, nondistended. The patient has bilateral lower extremity edema starting at the suprapubic area. : Normal phallus with urethral catheter in place draining clear yellow urine. Bilateral scrotal edema which is nontender to palpation. No erythema or crepitus. Neurologic: Moving all extremities. LAB: White blood cell count 2.5, hemoglobin 5.7, hematocrit 24.2, platelets 147,000. Sodium 135, potassium 4.0, chloride 101, bicarb 22, BUN 48, creatinine 4.5, glucose 60, calcium 10.8. ASSESSMENT AND PLAN: Mr. Ibrahim is a 69-year-old with history of B-cell lymphoma who has been followed by Dr. Borges who initially was referred to Urology due to bilateral hydronephrosis and obstruction due to lymphoma. The patient had indwelling stents placed and was doing relatively well. Creatinine remained stable at the 1.6 to 1.8 range. However, patient presented to the emergency room with worsening renal function with creatinine of 2.2 last week, which progressively worsened up to 4.5 today. The patient presented with hypercalcemia with a calcium level of 12.5 which still remains elevated today at 10.8. The patient had a CT scan as well as renal ultrasound which showed hydronephrosis with stents in place with worsening of his lymphoma. Had a lanny discussion with patient and his sister today regarding management of hydronephrosis and failure of stents. I told them that his stents were only exchanged on 03/27/2019 and he is already developing hydronephrosis likely due to external compression from worsening growth of his lymphoma. Recommend consideration for nephrostomy tube placement if he would to optimize his renal function. Patient and his sister have discussed hospice care and would like to proceed with transition to Hospice and has been transitioned to hospice care this afternoon. I recommended holding off on nephrostomy tubes as this would increase his quantity of life but may not improve quality of life, which both patient and sister understand and are in support of. We will continue to monitor. Would hold off on any urologic intervention at this time. The patient seems to think that he may be discharged tomorrow. Please call with questions or concerns. cc: John Brush MD [facility]
--- NOTE | 2019-04-29 18:52 | NEPHROLOGY CONSULTATION ---
DATE: 04/29/2019 REASON FOR ADMISSION: Obstructive uropathy. REASON FOR CONSULTATION: Acute kidney injury. CONSULTING PHYSICIAN: Jose Jenkins MD HISTORY OF PRESENT ILLNESS: This is a 69-year-old gentleman with diffuse large B-cell lymphoma known to the Urology service secondary to previous bilateral hydronephrosis and requiring bilateral ureteral stents earlier in the year. The patient underwent cystoscopy and stent exchange at the beginning of March. The patient came into the hospital secondary to have weakness, a UTI and acute kidney injury. On admission on this hospitalization, his creatinine was in the 2s. It has slowly risen up and now is at 4.5. The patient came to the hospital on this hospitalization with gross hematuria over the last several weeks. Decrease in urine output. We have been asked to see him for his acute kidney injury. When I discussed with the patient and the family, it appears that they are transitioning him over to hospice management and comfort measures only that they will not be pursuing aggressive therapy for his lymphoma. PAST MEDICAL HISTORY: Diffuse B-cell lymphoma, congestive heart failure, coronary artery disease, CVA, hyperlipidemia, recent bilateral hydronephrosis. PAST SURGICAL HISTORY: CABG, inguinal hernia repair, cystoscopy, ureteral stent placement. ALLERGIES: Morphine. HOME MEDICATIONS: Aspirin, atorvastatin, carvedilol, digoxin, Entresto, iron, meclizine, nitroglycerin, Revlimid, and Zofran. SOCIAL HISTORY: No ETOH, tobacco or illicit drug use. His sister is his expediter service order. FAMILY HISTORY: Negative. REVIEW OF SYSTEMS: Pertinent positives noted above in the HPI. PHYSICAL EXAMINATION: Vital Signs: Temperature 98.3 degrees, pulse 103, respiratory rate 16, blood pressure 95/40. Intake 2 L, output 850 mL. General: This is an elderly gentleman, chronically ill-appearing, resting in bed. Minimal interaction. HEENT: Normocephalic, atraumatic. He has temporal wasting. His oral mucosa is dry. Neck: Supple without JVD. Cardiovascular: Reveals a regular rate and rhythm. Pulmonary: Decreased breath sounds. No wheezes or rhonchi. Abdomen: Soft, with positive bowel sounds. Genitourinary: He has a Baldwin catheter with yellowish urine. Extremities: No clubbing, cyanosis. They are wasted. Neurological: Somewhat lethargic. No distress. Integumentary: Skin is warm and dry. LABORATORY DATA: Sodium 135, potassium 4.0, CO2 22, creatinine 4.5. ASSESSMENT AND PLAN: Patient with retroperitoneal lymphadenopathy secondary to B-cell lymphoma causing bilateral ureteral obstruction and acute kidney injury. The patient's family have discussed with Oncology their plan of care, and it appears that they will be transitioning over to hospice and comfort measures only. As such we will sign off at this time; however, if his plan of care changes, we will be more than happy to assist in the future. Dictated by JOHN Simmons for Robert Hahn MD Face to face encounter, data reviewed, discussed with Janeen Gage on 04/29/19. I agree with the above assessment and plan of care. cc: Robert Hahn MD MTD
[2019-04-29] MEDS: TYLENOL PO PRN (20:56)
[2019-04-30] MEDS: NORCO-7.5 PO PRN ×2 (05:57→18:01)
[2019-04-30] MEDS: CLINIMIX E 4.25%-5% SOLUTION 1,000 ML IV SCH (06:28)
[2019-04-30] MEDS ORDERED: NORCO-7.5 PO ONE (09:16)
[2019-04-30] MEDS: LEVAQUIN 250 MG/D5W 250 MG/50 ML IVPB IV SCH (09:41)
[2019-04-30] MEDS: TYLENOL PO PRN (13:47)
--- NOTE | 2019-04-30 14:57 | DISCHARGE SUMMARY ---
ADMISSION DATE: 04/25/2019 DISCHARGE DATE: PRINCIPAL DIAGNOSIS: Relapsed refractory diffuse large B-cell lymphoma. SECONDARY DIAGNOSIS: 1. Encephalopathy. 2. Probable urinary tract infection. 3. Probable pneumonia. 4. Hypercalcemia of malignancy. 5. Anemia probably of chronic disease. 6. Bilateral hydronephrosis with ureteral stent placement. 7. History of coronary artery disease. 8. History of congestive heart failure. 9. Acute kidney injury. 10. Anasarca. DISCHARGE MEDICATIONS: Include the followin. Levaquin 250 mg p.o. q.4 hours as directed. 2. Atorvastatin p.o. at bedtime. 3. Aspirin 81 mg p.o. daily. 4. Digoxin 125 mg p.o. daily. 5. Coreg 3.125 mg p.o. twice a day. 6. Multivitamin 1 p.o. daily. 7. Meclizine 25 g p.o. 3 times a day. 8. Iron 65 mg p.o. daily. 9. Magnesium oxide 4 mg p.o. daily. 10. [place] 10/325 one every 4 6 hours as needed. 11. Diphenhydramine 25 mg p.o. daily. 12. Flovent Diskus 50 mcg inhalation daily. 13. Phenazopyridine 97.5 mg p.o. daily. CONSULTATIONS DONE DURING HOSPITAL STAY: 1. Dr. Borges Hematology Oncology. 2. Dr. Rojo, Urology. PROCEDURES DONE DURING HOSPITAL STAY: 1. CT scan of the head done 04/25/2019 shows no hemorrhage. Old infarct with chronic microvascular ischemic change. 2. CT scan of the chest abdomen and pelvis shows significant adenopathy compatible with lymphoma. He has infiltrate throughout the left lung suggestive of pneumonia, trace bilateral pleural effusion. Severe bladder wall edema. Urinary bladder thickening suggestive of cystitis. [id number] bilateral hydronephrosis. Nephroureteral stent in good position. Small indeterminate nodules in the right kidney. 3. Neck CT shows left supra clavicular lymphadenopathy. HOSPITAL COURSE: Mr. Uri Ibrahim is a 69-year-old male who has a history of diffuse large B-cell lymphoma. He has been receiving Imbruvica prior to admission. He was admitted to the hospital because of altered mental status along with weakness and dysuria. The patient's calcium level was also noted to be markedly elevated. The patient was placed on antibiotics for presumed UTI as well as possible pneumonia and was seen by the Hematology/Oncology team. The patient was also seen by the Urology team because of bilateral hydro nephrosis. The idea of nephrostomy tube placement was considered however I seems that the patient and his sister have opted to go along with hospice at this time. The wishes of the patient and sister will be honored so the patient will be discharged hospice. EVALUATION TODAY: Vital signs were as follows: Temperature 99.1 degrees, pulse is 111, blood pressure 129/54, respiratory rate is 18. HEENT: Atraumatic. normocephalic. Cardiovascular: S1, S2. Respiratory system: Has evidence of good entry bilaterally. Abdomen: Soft, nontender. No masses felt. Extremities: No evidence of edema. Central nervous system: No obvious focal deficits. LABORATORY DATA: Blood sugar is 101. PLAN: The patient will be discharged home with hospice. Follow up will be with Dr. Clare Borges, hematology/ oncology, Dr. Robert Hahn nephrology as well as Dr. Rojo Urology. These follow-up appointments will be necessary only if the patient has decided to change his mind with regards to hospice. cc: Delroy Ramirez MD [facility]
[2019-04-30 16:27] VITALS: BP 85/46
[2019-05-02] MEDS ORDERED: LEVAQUIN PO SCH (10:00)
== END 2019-04-30 18:28 | disposition hospice, home (50) | DRG 682 ==
LOC: SUPCPDRO → ED 16:46 → SUATTDRO 20:15 → 3N 20:15 → 4N 23:40 → 3N 04-29 11:40
PROVIDERS: ATTEND Internal Medicine
CPT/HCPCS: 36430; 70450; 70490; 71010; 71045; 71250; 73502; 73562; 74176; 76770; 80048; 80053; 80069; 81001; 82550; 82553; 82570; 82607; 82728; 82746; 82948; 83540; 83550; 83605; 83735; 83970; 84300; 84484; 84540; 85025; 85610; 85730; 86850; 86900; 86901; 86920; 87040; 87088; 87205; 93005; 94760; 94761; 94799; 96365; 96366; 96367; 96368; 99285; 99291; A9270; J0696; J1940; J1956; J2270; J2405; J2543; J3370; J3487; J3489; J7030; J7040; J7042; P9016; P9047; Q2051; XXXXX